=== PATIENT | male | born 1970 | race Caucasian/White ===

== ENCOUNTER 2018-07-28 14:59 | Emergency (ER) | payer MEDICARE, SELFPAY ==
[2018-07-28] VITALS (7 sets, daily range): BP systolic 129–131; BP diastolic 85–90; PULSE 106–119; RESP 2–17; TEMP 36.5; O2SAT 88–92
--- NOTE | 2018-07-28 15:33 | ED.GENADUL_ITS ---
Discharge Plan Disposition Patient Disposition: HOME Discharge Details Chief Complaint: RespSymp Clinical Impression: Acute bronchitis with chronic obstructive pulmonary disease (COPD), Anxiety Primary Care Provider: [facility],Local ED Provider: Tay Beavers Home Meds and New Rx's Prescriptions: New prednisone 20 mg tablet 40 mg PO DAILY Qty: 8 RF: 0 doxycycline hyclate 100 mg tablet 100 mg PO BID Qty: 10 RF: 0 albuterol sulfate 90 mcg/actuation HFA aerosol inhaler 1 puff IH Q6H PRN (Reason: wheezing) Qty: 8.5 RF: 2 Continued clonazepam 1 mg Tablet 1 mg PO PRNRF: 0 dextroamphetamine-amphetamine [Adderall] 20 mg Tablet 20 mg PO BID RF: 0 Discharge Instructions Instructions: Doxycycline (By mouth), COPD (Chronic Obstructive Pulmonary Disease) (ED), Anxiety (ED) Additional Instructions: Please take full course of antibiotic as prescribed. Your next dose is 07/29/2018. Please use albuterol inhaler as prescribed. Please use prednisone as prescribed. Your next dose is 07/29/2018. Please contact your primary care physician to arrange follow-up. Return to the ER for any worsening or new concerning symptoms. Discharge Data Discharge Date/Time-TO BE ENTERED AT DEPARTURE: 07/28/18 17:25 Medical Decision Making 15:30 --48-year-old male with history of COPD, here with shortness of breath after out walking in the cold and anxiety. Patient was given an albuterol neb treatment by EMS and feels like his breathing has improved. He has bilateral expiratory wheeze on exam. He saturating well in no respiratory distress. S uspect COPD exacerbation. Will give solumedrol and duonebs. I have asked RT to participate in care. He also has a cough and likely has bronchitis. Consider pneumonia. Plan to obtain chest x-ray. Also of note, patient is currently experiencing anxiety. I will treat with Ativan p.o. 16:45 --chest x-ray interpreted by radiology: No evidence of acute cardiopulmonary disease. Patient reassessed and significantly improved. No respiratory distress, speaking in complete sentences, still with subtle wheeze at bases. Plan to continue albuterol treatments with inhaler with spacer. We will continue prednisone for the next 4 days. I also start doxycycline to cover for acute bronchitis. I encouraged him to follow-up with his primary care physician. Patient verbalized understanding of importance of timely follow-up. Disposition decision was made weighing the risks and benefits of hospitalization versus outpatient treatment, the risk for further decompensation, and the patient's wishes. The patient was stable and requested discharge. Prior to discharge, my usual and customary return precautions were reviewed with the patient - this included follow-up instructions and reason to return to the emergency department if condition worsens, does not improve as expected, or other new concerns arise. HPI General Mode of arrival: EMS . Date/Time Provider Initiated Documentation: 07/28/18 15:21 . Limitations to Documentation: no limitations . Information obtained by: patient and EMS . HPI Narrative: 48-year-old male with history of COPD and anxiety, here with chief complaint of shortness of breath. Patient notes that his COPD has been flaring up recently. He walked today in the cold to the store and thinks that the cold weather exacerbated his symptoms further. He went into the bathroom at the store because he was so short of breath and then became quite anxious. EMS responded and found the patient to be anxious, tachycardic and with wheeze. He was given a albuterol neb treatment. He notes now that his breathing has improved. He still feeling quite anxious. Patient states that he had a cough over the past couple weeks. No fever. He was seen at an outside hospital about a month ago for COPD flare and was prescribed azithromycin and prednisone. He did not take the prednisone but did take azithromycin. Related Data Home Medications Medication Instructions Recorded Confirmed albuterol sulfate 1 puff IH Q6H PRN #8.5 gm 07/28/18 clonazepam 1 mg PO PRN 07/28/18 dextroamphetamine-amphetamine 20 mg PO BID 07/28/18 07/28/18 [Adderall] doxycycline hyclate 100 mg PO BID #10 tab 07/28/18 prednisone 40 mg PO DAILY #8 tab 07/28/18 Previous Rx's Medication Instructions Recorded albuterol sulfate 1 puff IH Q6H PRN #8.5 gm 07/28/18 doxycycline hyclate 100 mg PO BID #10 tab 07/28/18 prednisone 40 mg PO DAILY #8 tab 07/28/18 Allergies Allergy/AdvReac Type Severity Reaction Status Date / Time acetaminophen [From Vicodin] Allergy Intermediate Skin Rash Unverified 07/28/18 15:10 hydrocodone [From Vicodin] Allergy Intermediate Skin Rash Unverified 07/28/18 15:10 General Stated Complaint: RespSymp JOSE: 4 Review of Systems Review of Systems All systems reviewed & are unremarkable except as noted in HPI and below Constitutional Denies fever(s) Cardiovascular Denies chest pain and Denies edema Respiratory Reports as per HPI Psychiatric Reports anxiety PFSH Medical History COPD (chronic obstructive pulmonary disease) (Chronic) Social History Smoking/Tobacco Use Status: Current every day Drug use: Never Do you feel safe in your relationship?: Yes Exam Const General: cooperative and anxious Orientation: alert and awake HENMT Head: normocephalic and atraumatic Mouth: moist mucous membranes Eyes Conjunctivae: normal conjunctivae Sclera: normal sclerae Neck Neck: trachea midline and supple Resp Effort & Inspection: normal respiratory effort and not labored Auscultation: no rales, no rhonchi and wheezes expiratory wheezes Cardio Jugular venous pressure: no JVD Rate: tachycardic Rhythm: regular rhythm GI Palpation: soft, not firm, no guarding, no masses, not rigid and nontender Skin General skin exam: no rashes or lesions noted Neuro General: alert, awake and tone normal Extrem General: no calf tenderness and no edema Psych Appearance: grossly normal Mental Status: mental status grossly normal Speech and Movement: speech and movement normal Mood: anxious mood Course Vital Signs Temperature 36.5 C 07/28/18 15:02 Pulse 119 H 07/28/18 15:02 Respiratory Rate 16 07/28/18 15:02 Blood Pressure 131/85 07/28/18 15:02 Pulse Oximetry 92 L 07/28/18 15:02 Temperature 36.5 C 07/28/18 15:02 Temperature Source Skin 07/28/18 15:02 Pulse 119 H 07/28/18 15:02 Respiratory Rate 16 07/28/18 15:02 Respiratory Effort 07/28/18 15:11 Respiratory Depth Normal 07/28/18 15:11 Blood Pressure 131/85 07/28/18 15:02 Blood Pressure Position Sitting 07/28/18 15:02 Pulse Oximetry 92 L 07/28/18 15:02 Oxygen Delivery Method Room Air 07/28/18 15:02 Oxygen Flow Rate 0 07/28/18 15:02 Pain Level 6 07/28/18 15:02
[2018-07-28] MEDS: methylPREDNISolone SUCC 125 MG VIAL IVP (15:35)
[2018-07-28] MEDS: Albuterol/Ipratropium 3 ML UPD VIAL UPD ×3 (15:37→16:11)
[2018-07-28] MEDS: LORazepam 1 MG TAB PO (15:39)
--- NOTE | 2018-07-28 15:45 | DI.RAD_ITS ---
SYMPTOM/DIAGNOSIS: COUGH, WHEEZE, COPD FRONTAL AND LATERAL CHEST: No priors. The heart size and pulmonary vasculature are within normal limits. No infiltrates, effusions or pneumothoraces are identified. The lungs appear hyperinflated with flattened diaphragms suggesting underlying COPD. Mild degenerative changes are seen in the spine. IMPRESSION: No acute pulmonary process.
[2018-07-28 15:46] LABS: Abs Immature Grans 0.03 k/cumm (0.0-0.09); Absolute Basophil Count 0.05 k/cumm (0.0-0.2); Absolute Eosinophil Count 0.16 k/cumm (0.0-0.7); Absolute Monocyte Count 0.71 k/cumm (0.11-0.7); Absolute Neutrophil Count 6.83 k/cumm (1.2-6.7); Basophils % 0.5; Eosinophils % 1.5; HGB 15.3 g/dL (13.5-17.5); Immature Grans % 0.3; Mean Corp. HGB Concentration 33.3 g/dL (32.0-36.0); Mean Corpuscular Hemoglobin 30.8 pg (27.0-33.0); Mean Corpuscular Volume 92.7 fL (80-95); Mean Platelet Volume 8.5 fL (8.0-11.0); Monocytes % 6.8; Neutrophils % 65.9; Platelet Count 423 x1000/uL (130-400); RBC 4.96 m/cumm (4.50-6.00); RBC Distribution Width 13.6 % (11.8-14.1); White Blood Cell Count 10.38 k/cumm (4.4-10.8)
[2018-07-28 15:56] LABS: ALT 64 U/L (12-78); AST 48 U/L (15-37); Albumin 3.6 g/dL (3.4-5.0); Alkaline Phosphatase 102 U/L (46-116); Anion Gap 10.9 mmol/L (3-11); BUN 16 mg/dL (7-18); Bilirubin, Total 0.3 mg/dL (0.2-1.0); CO2 25.1 mmol/L (21.0-32.0); CREATININE 0.77 mg/dL (0.70-1.30); Calcium 9.4 mg/dL (8.5-10.1); Chloride 103 mmol/L (98-107); Glucose 83 mg/dL (70-100); Potassium 4.1 mmol/L (3.5-5.1); Sodium 139 mmol/L (136-145); Total Protein 7.9 g/dL (6.4-8.2)
--- NOTE | 2018-07-28 16:19 | DI.VRAD_ITS ---
EXAM: XR Chest, 2 Views EXAM DATE/TIME: 07/28/2018 3:23 PM CLINICAL HISTORY: 48 years old, male; Signs and symptoms; Shortness of breath; Patient HX: SOB x 2 months. 2 rounds abx TECHNIQUE: XR of the chest, 2 views. COMPARISON: No relevant prior studies available. FINDINGS: The lung nino are clear bilaterally. No focal pulmonary consolidation is present. The cardiac silhouette is within normal limits. The costophrenic angles are sharp. The bony structures appear unremarkable. IMPRESSION: No evidence of acute cardiopulmonary disease. Dictated and Authenticated by: Eliud Hilliard MD. Ordering:AILYN Cross MD
[2018-07-28] MEDS: Doxycycline Hyclate 100 MG CAP PO ×2 (17:20)
[2018-07-28] MEDS: Albuterol HFA 8 GM 60 PUFF INH IH (17:20)
--- NOTE | 2018-07-28 17:22 | NUR.NOTE ---
patient medicated per MD order Nursing Note:
== END 2018-07-28 17:25 | disposition home or self-care (01) ==
PROVIDERS: Emergency Provider Student in an Organized Health Care Education/Training Program
DX: J44.0 Chronic obstructive pulmonary disease with (acute) lower respiratory infection (principal); J20.9 Acute bronchitis, unspecified; F41.9 Anxiety disorder, unspecified; F17.210 Nicotine dependence, cigarettes, uncomplicated
CPT/HCPCS: 36415; 80053; 94640; 96374; 99284; 71046; 85025; J2930; J7620